=== PATIENT | female | born 1975 | race Caucasian/White ===

== ENCOUNTER 2018-06-11 16:26 | Observation (INO) | payer BC, OTHER ==
--- NOTE | 2018-06-11 17:19 | PDOC ---
Rapid Medical Evaluation Time Seen by Provider: 06/11/18 17:16 Medical Evaluation: Allergies Allergy/AdvReac Type Severity Reaction Status Date / Time No Known Allergies Allergy Verified 01/30/14 20:27 I have performed a brief in-person evaluation of this patient. The patient presents with a chief complaint of: clinic called. told her that her bloodwork from friday showed critically anemic. pt feels slightly lightheaded. H&H was 12/27. patient was on her menstrual cycle and has a history of fibroids Pertinent physical exam findings: none I have ordered the following: labs, type and screen The patient will proceed to the ED for further evaluation. Discharge Disposition - Diagnosis Anemia - Referrals - Patient Instructions - Post Discharge Activity
[2018-06-11 17:40] LABS: BASO % 1.8 % (0-2.0); EOS % 2.5 % (0-4.5); HEMATOCRIT 21.9 % (32.4-45.2); LYMPH % 24.7 % (8-40); MCHC 30.7 g/dl (32.0-36.0); MEAN CELL VOLUME 58.3 fl (80-96); MEAN PLT VOLUME 8.7 fl (7.5-11.1); MONO % 8.4 % (3.8-10.2); NEUT % 62.6 % (42.8-82.8); PLATELET COUNT 430 K/MM3 (134-434); RBC 3.75 M/mm3 (3.60-5.2)
[2018-06-11 17:46] LABS: MCH 17.9 pg (25.7-33.7)
[2018-06-11 17:47] LABS: HEMOGLOBIN 6.7 GM/dL (10.7-15.3)
[2018-06-11 18:13] LABS: URINE APPEARANCE CLEAR; URINE BILIRUBIN NEGATIVE (<2.0 mg/dL); URINE COLOR LTYELLOW; URINE GLUCOSE (UA) NEGATIVE (NEGATIVE); URINE KETONE NEGATIVE (NEGATIVE); URINE LEUK ESTERASE NEGATIVE (NEGATIVE); URINE NITRITE NEGATIVE (NEGATIVE); URINE PROTEIN NEGATIVE (NEGATIVE); URINE UROBILINOGEN NEGATIVE mg/dL (0.2-1.0)
[2018-06-11 18:15] LABS: HCG,QUALITATIVE URINE Negative
[2018-06-11 18:17] LABS: ALBUMIN 3.8 g/dl (3.4-5.0); ALK PHOS 96 U/L (45-117); ANION GAP 6 MMOL/L (8-16); BILIRUBIN,TOTAL 0.3 mg/dL (0.2-1); BLOOD UREA NITROGEN 8 mg/dL (7-18); CALCIUM 8.4 mg/dL (8.5-10.1); CHLORIDE 107 mmol/L (98-107); CO2 25 mmol/L (21-32); CREATININE 0.7 mg/dL (0.55-1.3); GLUCOSE,RANDOM 95 mg/dL (74-106); SGOT/AST 19 U/L (15-37); SGPT/ALT 19 U/L (13-61); SODIUM 139 mmol/L (136-145); TOT PROT 7.7 g/dl (6.4-8.2)
[2018-06-11 18:39] LABS: EPI CELLS RARE /HPF (FEW); URINE MUCUS FEW
--- NOTE | 2018-06-11 18:43 | PDOC ---
History of Present Illness - General Chief Complaint: Revisit, Lab Variance Stated Complaint: PCP SENT/ANEMIC Time Seen by Provider: 06/11/18 17:16 History Source: Patient Exam Limitations: No Limitations - History of Present Illness Initial Comments: 06/11/18 18:39 Patient is a 43-year-old female past medical history of fibroids, who presents to the emergency department today for a abnormally low H&H on blood work. Patient states she was seen by her primary care doctor to [facility] when they told her she had a critically low hemoglobin of 6. She was told to come to the emergency department. Patient states she just finished her menstrual cycle 2 days ago. She states that it was very heavy with clots and using many pads per day. She states that she is not had any treatment for her fibroids in the past. Patient also admits to dyspnea on exertion and lightheadedness. Denies fevers, chills, chest pain, palpitations, edema, abdominal pain, frequency, urgency and hematuria. Past History - Travel Traveled outside of the country in the last 30 days: No Close contact w/someone who was outside of country & ill: No - Past Medical History Allergies/Adverse Reactions: Allergies Allergy/AdvReac Type Severity Reaction Status Date / Time No Known Allergies Allergy Verified 06/11/18 17:18 COPD: No Seizures: Yes (CHILDHOOD-NO MEDICATION) - Surgical History Cholecystectomy: Yes - Reproductive History (#): 3 Para: 2 - Immunization History Immunization Up to Date: Yes - Suicide/Smoking/Psychosocial Hx Smoking Status: No Smoking History: Never smoked Number of Cigarettes Smoked Daily: 0 Hx Alcohol Use: No Drug/Substance Use Hx: No Substance Use Type: None Review of Systems - Review of Systems Able to Perform ROS?: Yes Comments:: 06/11/18 18:38 CONSTITUTIONAL: Absent: fever, chills, diaphoresis, generalized weakness, malaise, loss of appetite HEENT: Absent: rhinorrhea, nasal congestion, throat pain, throat swelling, difficulty swallowing, mouth swelling, ear pain, eye pain, visual Changes CARDIOVASCULAR: Present: lightheadedness Absent: chest pain, loss of consciousness, palpitations , irregular heart rate, peripheral edema RESPIRATORY: Present: shortness of breath on exertion Absent: cough, shortness of breath, orthopnea, wheezing, stridor, hemoptysis GASTROINTESTINAL: Absent: abdominal pain, abdominal distension, nausea, vomiting, diarrhea, constipation, melena, hematochezia GENITOURINARY: Absent: dysuria, frequency, urgency, hesitancy, hematuria, flank pain, genital pain MUSCULOSKELETAL: Absent: myalgia, arthralgia, joint swelling SKIN: Absent: rash, itching, pallor HEMATOLOGIC/IMMUNOLOGIC: Absent: easy bleeding, easy bruising, lymphadenopathy, frequent infections ENDOCRINE: Absent: unexplained weight gain, unexplained weight loss, heat intolerance, cold intolerance NEUROLOGIC: Absent: headache, focal weakness or paresthesias, dizziness, unsteady gait, seizure, mental status changes, bladder or bowel incontinence PSYCHIATRIC: Absent: anxiety, depression, suicidal or homicidal ideation, hallucinations. Is the patient limited Indonesian proficient: No *Physical Exam - Vital Signs Last Vital Signs Temp Pulse Resp BP Pulse Ox 98.8 F 84 18 134/63 100 06/11/18 17:19 06/11/18 17:19 06/11/18 17:19 06/11/18 17:19 06/11/18 17:19 - Physical Exam Comments: 06/11/18 18:39 GENERAL: Well developed, well nourished. Awake and alert. No acute distress. HEENT: Normocephalic, atraumatic. PERRLA, EOMI. (+) conjunctival pallor. Sclera are non -icteric. Moist mucous membranes. Oropharynx is clear. NECK: Supple. Full ROM. No JVD. Carotid pulses 2+ and symmetric, without bruits. No thyromegaly. No lymphadenopathy. CARDIOVASCULAR: Regular rate and rhythm. No murmurs, rubs, or gallops. Distal pulses are 2+ and symmetric. PULMONARY: No evidence of respiratory distress. Lungs clear to auscultation bilaterally. No wheezing, rales or rhonchi. ABDOMINAL: Soft. Non-tender. Non-distended. No rebound or guarding. No organomegaly. Normoactive bowel sounds. MUSCULOSKELETAL Normal range of motion at all joints. No bony deformities or tenderness. No CVA tenderness. EXTREMITIES: No cyanosis. No clubbing. No edema. No calf tenderness. SKIN: Warm and dry. Normal capillary refill. No rashes. No jaundice. NEUROLOGICAL: Alert, awake, appropriate. Cranial nerves 2-12 intact. No deficits to light touch and temperature in face, upper extremities and lower extremities. No motor deficits in the in face, upper extremities and lower extremities. Normoreflexic in the upper and lower extremities. Normal speech. Toes are down- going bilaterally. Gait is normal without ataxia. PSYCHIATRIC: Cooperative. Good eye contact. Appropriate mood and affect. Moderate Sedation - Procedure Monitoring Vital Signs: Procedure Monitoring Vital Signs Temperature 98.8 F 06/11/18 17:19 Pulse Rate 84 06/11/18 17:19 Respiratory Rate 18 06/11/18 17:19 Blood Pressure 134/63 06/11/18 17:19 O2 Sat by Pulse Oximetry (%) 100 06/11/18 17:19 ED Treatment Course - LABORATORY CBC & Chemistry Diagram: 06/11/18 17:31 06/11/18 17:31 - ADDITIONAL ORDERS Additional order review: Laboratory Results 06/11/18 06/11/18 06/11/18 17:46 17:31 17:31 Sodium 139 Potassium 4.0 Chloride 107 Carbon Dioxide 25 Anion Gap 6 L BUN 8 Creatinine 0.7 Creat Clearance w eGFR > 60 Random Glucose 95 Calcium 8.4 L Total Bilirubin 0.3 AST 19 ALT 19 Alkaline Phosphatase 96 Total Protein 7.7 Albumin 3.8 Urine Color Ltyellow Urine Appearance Clear Urine pH 6.0 Ur Specific [place] 1.011 Urine Protein Negative Urine Glucose (UA) Negative Urine Ketones Negative Urine Blood 1+ H Urine Nitrite Negative Urine Bilirubin Negative Urine Urobilinogen Negative Ur Leukocyte Esterase Negative Urine HCG, Qual Negative Crossmatch See Detail 06/11/18 17:31 RBC 3.75 MCV 58.3 L MCHC 30.7 L RDW 20.0 H MPV 8.7 Neutrophils % 62.6 Lymphocytes % 24.7 Monocytes % 8.4 Eosinophils % 2.5 Basophils % 1.8 - RADIOLOGY Radiology Studies Ordered: Category Date Time Status CHEST PA & LAT [RAD] Stat Radiology 06/11/18 18:08 Ordered TRANSVAGINAL ULTRASOUND US [US] Stat Ultrasound 06/11/18 18:07 Ordered Medical Decision Making - Medical Decision Making 06/11/18 18:41 Patient is a 43-year-old female with past medical history of fibroids, who presents to the emergency department patient is a 43-year-old female with past medical history of uterine fibroids, who presents to the emergency department today for a critically low H&H as an outpatient of 6. Labs obtained from [facility] show a hemoglobin of 6.7. Ordered 2 packed units at this time. Additional orders for chest x-ray, transvaginal ultrasound and EKG placed. Still pending lab work. Anticipate this patient will need observation for her transfusion and workup of anemia. Sign out given to MAILE Machado. *DC/Admit/Observation/Transfer Diagnosis at time of Disposition: Anemia - Referrals - Patient Instructions - Post Discharge Activity
--- NOTE | 2018-06-11 19:42 | PDOC ---
*Physical Exam - Vital Signs Last Vital Signs Temp Pulse Resp BP Pulse Ox 98.8 F 84 18 134/63 100 06/11/18 17:19 06/11/18 17:19 06/11/18 17:19 06/11/18 17:19 06/11/18 17:19 - Physical Exam General Appearance: Yes: Appropriately Dressed Respiratory/Chest: positive: Lungs Clear, Normal Breath Sounds. negative: Labored Respiration Musculoskeletal: positive: Normal Inspection Extremity: positive: Normal Capillary Refill, Normal Inspection Integumentary: positive: Dry, Warm, Pale ED Treatment Course - LABORATORY CBC & Chemistry Diagram: 06/12/18 16:00 06/11/18 17:31 - ADDITIONAL ORDERS Additional order review: Laboratory Results 06/11/18 06/11/18 06/11/18 17:46 17:31 17:31 Sodium 139 Potassium 4.0 Chloride 107 Carbon Dioxide 25 Anion Gap 6 L BUN 8 Creatinine 0.7 Creat Clearance w eGFR > 60 Random Glucose 95 Calcium 8.4 L Total Bilirubin 0.3 AST 19 ALT 19 Alkaline Phosphatase 96 Total Protein 7.7 Albumin 3.8 Urine Color Ltyellow Urine Appearance Clear Urine pH 6.0 Ur Specific [place] 1.011 Urine Protein Negative Urine Glucose (UA) Negative Urine Ketones Negative Urine Blood 1+ H Urine Nitrite Negative Urine Bilirubin Negative Urine Urobilinogen Negative Ur Leukocyte Esterase Negative Urine WBC (Auto) 1 Urine RBC (Auto) 1 Ur Epithelial Cells Rare Urine Mucus Few Urine HCG, Qual Negative Blood Type A POSITIVE Antibody Screen Negative Crossmatch See Detail 06/11/18 17:31 RBC 3.75 MCV 58.3 L MCHC 30.7 L RDW 20.0 H MPV 8.7 Neutrophils % 62.6 Lymphocytes % 24.7 Monocytes % 8.4 Eosinophils % 2.5 Basophils % 1.8 Medical Decision Making - Medical Decision Making 06/11/18 21:[address] Poe. will consult prn. recommends admission for anemia. patient is currently hemodynamically stable. patient signed out to Dr. Harden/ Dr. Vaughn *DC/Admit/Observation/Transfer Diagnosis at time of Disposition: Anemia Qualifiers: Anemia type: iron deficiency Iron deficiency anemia type: chronic blood loss Qualified Code(s): D50.0 - Iron deficiency anemia secondary to blood loss ( chronic) - Discharge Dispostion Disposition: HOME Condition at time of disposition: Stable Decision to Admit order: Yes - Referrals - Patient Instructions - Post Discharge Activity
[2018-06-11 21:08] LABS: ANISOCYTOSIS 3+; MACROCYTOSIS 1+
[2018-06-11 21:09] LABS: PLATELET ESTIMATE ADEQUATE
--- NOTE | 2018-06-11 22:21 | HP ---
CHIEF COMPLAINT: Sent from clinic for low Hgb on routine labs PCP: Clinic at [address] [facility], does not have consistent PCP HISTORY OF PRESENT ILLNESS: 43 yo female with PMH of uterine fibroids admitted after being sent from the clinic for a low hemogblobin. She states she recently completed her menstrual cycle in the last day or two though she is still having some minimal spotting. Her periods are normally heavy and last for around 5 days. She states her recent one was heavy as normal with notable clots and that she soaked through numerous pads each day. She denies having any complaints and states that she only had the blood work done because she was having an employment physical. However on further investigation, she does endorse a couple episodes of dyspnea on exertion, weakness, and feeling more tired over the last few days ER course was notable for: (1) Hgb 6.7 (2) Type and Screen (3) 2 units ordered but have not begun administration yet Recent Travel: None PAST MEDICAL HISTORY: Uterine Fibroibs PAST SURGICAL HISTORY: Right breast lumpectomy Social History: Smoking: Denies Alcohol: Very rarely Drugs: Denies Family History: Allergies No Known Allergies Allergy (Verified 06/11/18 17:18) HOME MEDICATIONS: REVIEW OF SYSTEMS CONSTITUTIONAL: generalized weakness Absent: fever, chills, diaphoresis, , malaise, loss of appetite, weight change HEENT: Absent: rhinorrhea, nasal congestion, throat pain, throat swelling, difficulty swallowing, mouth swelling, ear pain, eye pain, visual changes CARDIOVASCULAR: Absent: chest pain, syncope, palpitations, irregular heart rate, lightheadedness , peripheral edema RESPIRATORY: dyspnea with exertion, Absent: cough, shortness of breath, orthopnea, wheezing, stridor, hemoptysis GASTROINTESTINAL: Absent: abdominal pain, abdominal distension, nausea, vomiting, diarrhea, constipation, melena, hematochezia GENITOURINARY: flank pain (during menstruation, resolved) Absent: dysuria, frequency, urgency, hesitancy, hematuria, genital pain MUSCULOSKELETAL: Absent: myalgia, arthralgia, joint swelling, back pain, neck pain SKIN: Absent: rash, itching, pallor HEMATOLOGIC/IMMUNOLOGIC: Absent: easy bleeding, easy bruising, lymphadenopathy, frequent infections ENDOCRINE: Absent: unexplained weight gain, unexplained weight loss, heat intolerance, cold intolerance NEUROLOGIC: Absent: headache, focal weakness or paresthesias, dizziness, unsteady gait, seizure, mental status changes, bladder or bowel incontinence PSYCHIATRIC: Absent: anxiety, depression, suicidal or homicidal ideation, hallucinations. PHYSICAL EXAMINATION Vital Signs - 24 hr 18 06/11/18 17:19 22:05 Temperature 98.8 F 98.4 F Pulse Rate 84 Pulse Rate [ 84 Right Radial] Respiratory 18 18 Rate Blood Pressure 134/63 Blood Pressure 118/63 [Left Arm] O2 Sat by Pulse 100 100 Oximetry (%) GENERAL: A&O, pale but no acute distress HEAD: Normocephalic, atraumatic. EYES: PERRL, no scleral icterus EARS, NOSE, THROAT: oropharynx clear without exudates. Moist mucous membranes. NECK: supple without lymphadenopathy LUNGS: CTA b/l, no crackles or wheezes HEART: Regular rate and rhythm, normal S1 and S2 without murmur ABDOMEN: Soft, nontender to palpation, normoactive bowel sounds MUSCULOSKELETAL: No bony deformities or tenderness. EXTREMITIES: 2+ pulses, warm, well-perfused. No peripheral edema. NEUROLOGICAL: Cranial nerves II-XII grossly intact. Normal speech. Laboratory Results - last 24 hr 06/11/18 06/11/18 06/11/18 17:31 17:31 17:31 WBC 5.0 RBC 3.75 Hgb 6.7 L* Hct 21.9 L D MCV 58.3 L MCH 17.9 L D MCHC 30.7 L RDW 20.0 H Plt Count 430 D MPV 8.7 Absolute Neuts (auto) 3.2 Neutrophils % 62.6 Lymphocytes % 24.7 Monocytes % 8.4 Eosinophils % 2.5 Basophils % 1.8 Nucleated RBC % 0 Hypochromia 3+ Platelet Estimate Adequate Platelet Comment No clumping noted Anisocytosis 3+ Microcytosis 3+ Macrocytosis 1+ Sodium 139 Potassium 4.0 Chloride 107 Carbon Dioxide 25 Anion Gap 6 L BUN 8 Creatinine 0.7 Creat Clearance w eGFR > 60 Random Glucose 95 Calcium 8.4 L Total Bilirubin 0.3 AST 19 ALT 19 Alkaline Phosphatase 96 Total Protein 7.7 Albumin 3.8 Urine Color Urine Appearance Urine pH Ur Specific [place] Urine Protein Urine Glucose (UA) Urine Ketones Urine Blood Urine Nitrite Urine Bilirubin Urine Urobilinogen Ur Leukocyte Esterase Urine WBC (Auto) Urine RBC (Auto) Ur Epithelial Cells Urine Mucus Urine HCG, Qual Anti-A Titer Blood Type A POSITIVE Antibody Screen Negative Crossmatch See Detail 06/11/18 06/11/18 17:46 21:16 WBC RBC Hgb Hct MCV MCH MCHC RDW Plt Count MPV Absolute Neuts (auto) Neutrophils % Lymphocytes % Monocytes % Eosinophils % Basophils % Nucleated RBC % Hypochromia Platelet Estimate Platelet Comment Anisocytosis Microcytosis Macrocytosis Sodium Potassium Chloride Carbon Dioxide Anion Gap BUN Creatinine Creat Clearance w eGFR Random Glucose Calcium Total Bilirubin AST ALT Alkaline Phosphatase Total Protein Albumin Urine Color Ltyellow Urine Appearance Clear Urine pH 6.0 Ur Specific [place] 1.011 Urine Protein Negative Urine Glucose (UA) Negative Urine Ketones Negative Urine Blood 1+ H Urine Nitrite Negative Urine Bilirubin Negative Urine Urobilinogen Negative Ur Leukocyte Esterase Negative Urine WBC (Auto) 1 Urine RBC (Auto) 1 Ur Epithelial Cells Rare Urine Mucus Few Urine HCG, Qual Negative Anti-A Titer Cancelled Blood Type Cancelled Antibody Screen Cancelled Crossmatch ASSESSMENT/PLAN: 43 yo female with PMH of uterine fibroids admitted after being sent from the clinic for a low hemogblobin Anemia -Secondary to blood loss anemia with chronic heavy menstrual bleeding secondary to uterine fibroids -Case discussed with Gynecology by ED provider, can see as an outpatient follow up as pt not actively bleeding -Type and screen completed -One unit PRBCs ordered and pending, will repeat CBC and reassess after first unit completes, consider second unit PRBCs and then D/C to home -Stressed to patient the importance of outpatient f/u with gynecology for further management of uterine fibroids in order to prevent future transfusions DVT Prophylaxis -Early Ambulation FEN -Fluids: None -Electrolytes: No electrolyte abnormalities, BMP in AM -Nutrition: Regular diet Disposition Observation Visit type - Emergency Visit Emergency Visit: Yes ED Registration Date: 06/11/18 Care time: The patient presented to the Emergency Department on the above date and was hospitalized for further evaluation of their emergent condition. - New Patient This patient is new to me today: Yes Date on this admission: 06/12/18 - Critical Care Critical Care patient: No
--- NOTE | 2018-06-11 23:00 | PN ---
Teaching Attending Note Name of Resident: Zak Del Rosario ATTENDING PHYSICIAN STATEMENT I saw and evaluated the patient. I reviewed the resident's note and discussed the case with the resident. I agree with the resident's findings and plan as documented. SUBJECTIVE: Patient is a 43-year-old woman withl history of fibroids, who presents to the ER for a abnormally low H&H on blood work. Patient states she was seen by her primary care doctor to [facility] when they told her she had a critically low hemoglobin of 6. She was told to come to the emergency department. Patient states she just finished her menstrual cycle 2 days ago. She states that it was very heavy with clots and using many pads per day. She states that she is not had any treatment for her fibroids in the past. Fibroids were discovered about 18 months ago about the same time she started having heavy periods. Patient also admits to dyspnea on exertion and lightheadedness. Denies fevers, chills, chest pain, palpitations, edema, abdominal pain, frequency, urgency and hematuria. OBJECTIVE: Alert Vital Signs Period Temp Pulse Resp BP Sys/Gregg Pulse Ox Last 24 Hr 98.3 F-98.8 F 84-85 18-18 102-134/61-63 100-100 HEENT: No Jaundice, eye redness or discharge, Pale; PERRLA, EOMI. Normocephalic , atraumatic. External ears are normal and hearing is grossly intact. No nasal discharge. Neck: Supple, nontender. No palpable adenopathy or thyromegaly. No JVD Chest: Good effort. Clear to auscultation and percussion. Heart: Regular. No S3, rub or murmur Abdomen: Not distended, soft, nontender and no HSM. No rebound or guarding. Normoactive bowel sounds. Ext: Peripheral pulses intact. No leg edema. Skin: Warm and dry. No petechiae, rash or ecchymosis. Neuro: Alert. Oriented x3. CN 2-12 grossly intact. Sensation grossly intact in all four extremities and DTR are symmetric. ASSESSMENT AND PLAN: 1. Symptomatic anemia - Due to fibroids and heavy menstrual bleeding. Being transfused PRBC. Patient counseled in the presence of he daughter and her to make sure she follows up with [facility] [employer] to address the fibroids. Current options in the management of fibroids discussed. 2. DVT prophylaxis - Lovenox 40 mg SQ q 24 hours. 3. Advance directives - Full code
[2018-06-12 01:22] VITALS: BMI 29.0
[2018-06-12 02:26] LABS: HEMATOCRIT 24.4 % (32.4-45.2); HEMOGLOBIN 7.6 GM/dL (10.7-15.3); MCHC 31.3 g/dl (32.0-36.0); MEAN CELL VOLUME 61.8 fl (80-96); MEAN PLT VOLUME 8.7 fl (7.5-11.1); PLATELET COUNT 371 K/MM3 (134-434); RBC 3.95 M/mm3 (3.60-5.2); RDW 24.2 % (11.6-15.6); WHITE BLOOD COUNT 6.6 K/mm3 (4.0-10.0)
[2018-06-12 02:27] LABS: MCH 19.4 pg (25.7-33.7)
--- NOTE | 2018-06-12 16:28 | PN ---
Teaching Attending Note Name of Resident: Celia Alvarez ATTENDING PHYSICIAN STATEMENT I saw and evaluated the patient. I reviewed the resident's note and discussed the case with the resident. I agree with the resident's findings and plan as documented with exceptions below. SUBJECTIVE: Patient seen and examined, doing well, getting blood transfusion. OBJECTIVE: Vital Signs Period Temp Pulse Resp BP Sys/Gregg Pulse Ox Last 24 Hr 97.8 F-98.8 F 77-85 18-20 102-134/54-75 96-100 Intake & Output 06/09/18 06/10/18 06/11/18 06/12/18 23:59 23:59 23:59 23:59 Intake Total 250 Balance 250 Weight 151 lb 153 lb 5 oz General: sitting in bed in no acute distress Chest: CTAB, no rales or wheezing Abdomen:soft, obese, NT Extremities; no edema Home Medications Medication Instructions Recorded NK [No Known Home Medication] 06/12/18 Laboratory Results - last 24 hr 06/11/18 06/11/18 06/11/18 17:31 17:31 17:31 WBC 5.0 RBC 3.75 Hgb 6.7 L* Hct 21.9 L D MCV 58.3 L MCH 17.9 L D MCHC 30.7 L RDW 20.0 H Plt Count 430 D MPV 8.7 Absolute Neuts (auto) 3.2 Neutrophils % 62.6 Lymphocytes % 24.7 Monocytes % 8.4 Eosinophils % 2.5 Basophils % 1.8 Nucleated RBC % 0 Hypochromia 3+ Platelet Estimate Adequate Platelet Comment No clumping noted Anisocytosis 3+ Microcytosis 3+ Macrocytosis 1+ Sodium 139 Potassium 4.0 Chloride 107 Carbon Dioxide 25 Anion Gap 6 L BUN 8 Creatinine 0.7 Creat Clearance w eGFR > 60 Random Glucose 95 Calcium 8.4 L Total Bilirubin 0.3 AST 19 ALT 19 Alkaline Phosphatase 96 Total Protein 7.7 Albumin 3.8 Urine Color Urine Appearance Urine pH Ur Specific [place] Urine Protein Urine Glucose (UA) Urine Ketones Urine Blood Urine Nitrite Urine Bilirubin Urine Urobilinogen Ur Leukocyte Esterase Urine WBC (Auto) Urine RBC (Auto) Ur Epithelial Cells Urine Mucus Urine HCG, Qual Anti-A Titer Blood Type A POSITIVE Antibody Screen Negative Crossmatch See Detail 06/11/18 06/11/18 06/12/18 17:46 21:16 01:50 WBC 6.6 RBC 3.95 Hgb 7.6 L Hct 24.4 L MCV 61.8 L D MCH 19.4 L MCHC 31.3 L RDW 24.2 H Plt Count 371 MPV 8.7 Absolute Neuts (auto) Neutrophils % Lymphocytes % Monocytes % Eosinophils % Basophils % Nucleated RBC % Hypochromia Platelet Estimate Platelet Comment Anisocytosis Microcytosis Macrocytosis Sodium Potassium Chloride Carbon Dioxide Anion Gap BUN Creatinine Creat Clearance w eGFR Random Glucose Calcium Total Bilirubin AST ALT Alkaline Phosphatase Total Protein Albumin Urine Color Ltyellow Urine Appearance Clear Urine pH 6.0 Ur Specific [place] 1.011 Urine Protein Negative Urine Glucose (UA) Negative Urine Ketones Negative Urine Blood 1+ H Urine Nitrite Negative Urine Bilirubin Negative Urine Urobilinogen Negative Ur Leukocyte Esterase Negative Urine WBC (Auto) 1 Urine RBC (Auto) 1 Ur Epithelial Cells Rare Urine Mucus Few Urine HCG, Qual Negative Anti-A Titer Cancelled Blood Type Cancelled Antibody Screen Cancelled Crossmatch ASSESSMENT AND PLAN: 43 yof with uterine fibroids here with symptomatic anemia -Symptomatic anemia, likely from menorrhagia/fibroids Plan: Transfuse total 2 units pRbc. repeat h/h d/c home with outpatient chef broiler or fry follow up if hb stable Plan discussed with patient in detail, all questions answered.
[2018-06-12 16:31] LABS: HEMATOCRIT 27.1 % (32.4-45.2); HEMOGLOBIN 8.8 GM/dL (10.7-15.3); MCH 20.8 pg (25.7-33.7); MCHC 32.7 g/dl (32.0-36.0); MEAN CELL VOLUME 63.7 fl (80-96); MEAN PLT VOLUME 8.8 fl (7.5-11.1); PLATELET COUNT 361 K/MM3 (134-434); RBC 4.25 M/mm3 (3.60-5.2); RDW 26.5 % (11.6-15.6); WHITE BLOOD COUNT 5.7 K/mm3 (4.0-10.0)
--- NOTE | 2018-06-12 16:43 | DS ---
Physical Exam: SUBJECTIVE: Patient seen and examined OBJECTIVE: Vital Signs Period Temp Pulse Resp BP Sys/Gregg Pulse Ox Last 24 Hr 97.8 F-98.8 F 77-85 18-20 102-134/54-75 96-100 PHYSICAL EXAM GENERAL: The patient is awake, alert, and fully oriented, in no acute distress. HEAD: Normal with no signs of trauma. EYES: PERRL, extraocular movements intact, sclera anicteric, conjunctiva clear. ENT: Ears normal, nares patent, oropharynx clear without exudates, moist mucous membranes. NECK: Trachea midline, full range of motion, supple. LUNGS: Breath sounds equal, clear to auscultation bilaterally, no wheezes, no crackles, no accessory muscle use. HEART: Regular rate and rhythm, S1, S2 without murmur, rub or gallop. ABDOMEN: Soft, nontender, nondistended, normoactive bowel sounds, no guarding, no rebound, no hepatosplenomegaly, no masses. EXTREMITIES: 2+ pulses, warm, well-perfused, no edema. NEUROLOGICAL: Cranial nerves II through XII grossly intact. Normal speech, gait not observed. PSYCH: Normal mood, normal affect. SKIN: Warm, dry, normal turgor, no rashes or lesions noted. LABS Laboratory Results - last 24 hr 06/11/1818 06/11/18 17:31 17:31 17:31 WBC 5.0 RBC 3.75 Hgb 6.7 L* Hct 21.9 L D MCV 58.3 L MCH 17.9 L D MCHC 30.7 L RDW 20.0 H Plt Count 430 D MPV 8.7 Absolute Neuts (auto) 3.2 Neutrophils % 62.6 Lymphocytes % 24.7 Monocytes % 8.4 Eosinophils % 2.5 Basophils % 1.8 Nucleated RBC % 0 Hypochromia 3+ Platelet Estimate Adequate Platelet Comment No clumping noted Anisocytosis 3+ Microcytosis 3+ Macrocytosis 1+ Sodium 139 Potassium 4.0 Chloride 107 Carbon Dioxide 25 Anion Gap 6 L BUN 8 Creatinine 0.7 Creat Clearance w eGFR > 60 Random Glucose 95 Calcium 8.4 L Total Bilirubin 0.3 AST 19 ALT 19 Alkaline Phosphatase 96 Total Protein 7.7 Albumin 3.8 Urine Color Urine Appearance Urine pH Ur Specific [place] Urine Protein Urine Glucose (UA) Urine Ketones Urine Blood Urine Nitrite Urine Bilirubin Urine Urobilinogen Ur Leukocyte Esterase Urine WBC (Auto) Urine RBC (Auto) Ur Epithelial Cells Urine Mucus Urine HCG, Qual Anti-A Titer Blood Type A POSITIVE Antibody Screen Negative Crossmatch See Detail 06/11/18 06/11/18 06/12/18 17:46 21:16 01:50 WBC 6.6 RBC 3.95 Hgb 7.6 L Hct 24.4 L MCV 61.8 L D MCH 19.4 L MCHC 31.3 L RDW 24.2 H Plt Count 371 MPV 8.7 Absolute Neuts (auto) Neutrophils % Lymphocytes % Monocytes % Eosinophils % Basophils % Nucleated RBC % Hypochromia Platelet Estimate Platelet Comment Anisocytosis Microcytosis Macrocytosis Sodium Potassium Chloride Carbon Dioxide Anion Gap BUN Creatinine Creat Clearance w eGFR Random Glucose Calcium Total Bilirubin AST ALT Alkaline Phosphatase Total Protein Albumin Urine Color Ltyellow Urine Appearance Clear Urine pH 6.0 Ur Specific [place] 1.011 Urine Protein Negative Urine Glucose (UA) Negative Urine Ketones Negative Urine Blood 1+ H Urine Nitrite Negative Urine Bilirubin Negative Urine Urobilinogen Negative Ur Leukocyte Esterase Negative Urine WBC (Auto) 1 Urine RBC (Auto) 1 Ur Epithelial Cells Rare Urine Mucus Few Urine HCG, Qual Negative Anti-A Titer Cancelled Blood Type Cancelled Antibody Screen Cancelled Crossmatch 06/12/18 16:00 WBC 5.7 RBC 4.25 Hgb 8.8 L Hct 27.1 L MCV 63.7 L MCH 20.8 L MCHC 32.7 RDW 26.5 H Plt Count 361 MPV 8.8 Absolute Neuts (auto) Neutrophils % Lymphocytes % Monocytes % Eosinophils % Basophils % Nucleated RBC % Hypochromia Platelet Estimate Platelet Comment Anisocytosis Microcytosis Macrocytosis Sodium Potassium Chloride Carbon Dioxide Anion Gap BUN Creatinine Creat Clearance w eGFR Random Glucose Calcium Total Bilirubin AST ALT Alkaline Phosphatase Total Protein Albumin Urine Color Urine Appearance Urine pH Ur Specific [place] Urine Protein Urine Glucose (UA) Urine Ketones Urine Blood Urine Nitrite Urine Bilirubin Urine Urobilinogen Ur Leukocyte Esterase Urine WBC (Auto) Urine RBC (Auto) Ur Epithelial Cells Urine Mucus Urine HCG, Qual Anti-A Titer Blood Type Antibody Screen Crossmatch HOSPITAL COURSE: Date of Admission:06/11/18 43 y/o female no PMH came in after being sent in from her PCP for a low hgb- on admission it was 6.7. pateint has a history of fibroids and very heavy menstrual periods. reji recieved 2 untis of blood and repeat cbc was 8.8 patient was dishcarged to follow up with her pcp within one week for repeat cbc and also has urogynecology physician referrals. Date of Discharge: 06/12/18 Minutes to complete discharge: 39 Discharge Summary Reason For Visit: ANEMIA Current Active Problems Anemia (Acute) Condition: Stable - Instructions Diet, Activity, Other Instructions: You came to the hospital with a low hemoglobin level, which came up appropriately after receiving 2 units of blood. Please resume all of your home medications: -Please follow up with your primary care physician and have your blood levels checked within one week. We also advise you to get iron studies done -We are referring you to a inductor tester, Dr. Nguyen, please make an appointment within a week. *if you continue to have bleeding, or if you have any chest pain, dizziness, shortness of breath, headaches, palpitations, or any new concerns, please call 911 or return to the emergency room immediately. Referrals: Lor Nguyen MD [Staff Physician] - 1 Week Disposition: HOME - Home Medications Comprehensive Discharge Medication List: Ambulatory Orders NK [No Known Home Medication] 06/12/18 Problem List - Problems (1) Anemia Code(s): D64.9 - ANEMIA, UNSPECIFIED Qualifiers: Anemia type: iron deficiency Iron deficiency anemia type: chronic blood loss Qualified Code(s): D50.0 - Iron deficiency anemia secondary to blood loss (chronic) This patient is new to me today: Yes Date on this admission: 06/12/18 Emergency Visit: Yes ED Registration Date: 06/11/18 Care time: The patient presented to the Emergency Department on the above date and was hospitalized for further evaluation of their emergent condition. Critical Care patient: No - Discharge Referral Referred to [facility] Med [facility] No
[2018-06-12 17:29] VITALS: BP 126/74; PULSE 80; TEMP 98.4
== END 2018-06-12 18:14 | disposition home or self-care (01) ==
LOC: JER 16:26 → JERBED 21:36 → J7W 06-12 00:52
PROVIDERS: ADMIT Internal Medicine; ATTEND Hospitalist
PROC: 30233N1 Transfusion of Nonautologous Red Blood Cells into Peripheral Vein, Percutaneous Approach (ICD-10-PCS; principal; 2018-06-11)
DX: D50.0 Iron deficiency anemia secondary to blood loss (chronic) (principal); D25.9 Leiomyoma of uterus, unspecified; Z86.69 Personal history of other diseases of the nervous system and sense organs
CPT/HCPCS: 36415; 36430; 71046-TC-FY; 76830-TC; 80053; 81003; 81015; 84703; 85025; 85027; 86850; 86900; 86901; 86922; 99285-25; G0378; P9038; P9058

== ENCOUNTER 2019-09-06 15:29 | Emergency (ER) | payer OTHER ==
[2019-09-06 15:48] VITALS: BP 124/64; PULSE 82; TEMP 98.7; BMI 29.5
--- NOTE | 2019-09-06 15:48 | PDOC ---
Rapid Medical Evaluation Chief Complaint: Lightheaded Time Seen by Provider: 09/06/19 15:45 Medical Evaluation: Allergies Allergy/AdvReac Type Severity Reaction Status Date / Time No Known Allergies Allergy Verified 09/06/19 15:44 09/06/19 15:45 This patient had rapid evaluation in triage cc:lightheadedness HPI: Patient reports suffering from anemia and feels as if her blood count is low. Complaining of palpitations 1-2 hours ago. PE: appears well, no pallor unlabored breathing heart [id number] order: labs ordered This patient will proceed to main emergency room for further evaluation. Discharge Disposition - Diagnosis Anemia - Referrals - Patient Instructions - Post Discharge Activity
[2019-09-06 16:33] LABS: INR 0.96 (0.83-1.09); PROTHROMBIN TIME (PATIENT) 11.3 SEC (9.7-13.0)
[2019-09-06 16:35] LABS: ACTIVATED PTT 29.7 SECONDS (25.2-36.5)
[2019-09-06 16:36] LABS: BASO % 0.9 % (0-2.0); EOS % 1.6 % (0-4.5); HEMATOCRIT 29.7 % (32.4-45.2); HEMOGLOBIN 9.1 GM/dL (10.7-15.3); LYMPH % 19.1 % (8-40); MCH 24.3 pg (25.7-33.7); MCHC 30.6 g/dl (32.0-36.0); MEAN CELL VOLUME 79.2 fl (80-96); MEAN PLT VOLUME 9.2 fl (7.5-11.1); MONO % 6.6 % (3.8-10.2); NEUT % 71.8 % (42.8-82.8); PLATELET COUNT 263 K/MM3 (134-434); RBC 3.75 M/mm3 (3.60-5.2); RDW 23.6 % (11.6-15.6); WHITE BLOOD COUNT 6.7 K/mm3 (4.0-10.0)
[2019-09-06 16:42] LABS: ALBUMIN 3.4 g/dl (3.4-5.0); BILIRUBIN,TOTAL 0.1 mg/dL (0.2-1); BLOOD UREA NITROGEN 9.2 mg/dL (7-18); CREATININE 0.8 mg/dL (0.55-1.3); POTASSIUM 4.1 mmol/L (3.5-5.1)
[2019-09-06 16:52] LABS: ANISOCYTOSIS 3+; PLATELET ESTIMATE ADEQUATE
[2019-09-06] MEDS ORDERED: IBUPROFEN 400 MG TABLET (FP) PO ONE (18:09)
--- NOTE | 2019-09-06 18:15 | PDOC ---
History of Present Illness - General Chief Complaint: Lightheaded Stated Complaint: WEAK/DIZZY/NAUSE Time Seen by Provider: 09/06/19 15:45 History Source: Patient - History of Present Illness Timing/Duration: other Past History - Past Medical History Allergies/Adverse Reactions: Allergies Allergy/AdvReac Type Severity Reaction Status Date / Time No Known Allergies Allergy Verified 09/06/19 15:44 Home Medications: Ambulatory Orders NK [No Known Home Medication] 06/12/18 Anemia: No Asthma: No Cancer: No Cardiac Disorders: No CVA: No COPD: No CHF: No Dementia: No Diabetes: No GI Disorders: No Disorders: No HTN: No Hypercholesterolemia: No Liver Disease: No Seizures: Yes (CHILDHOOD-NO MEDICATION) Thyroid Disease: No - Surgical History Abdominal Surgery: No Appendectomy: No Cardiac Surgery: No Cholecystectomy: Yes Lung Surgery: No Neurologic Surgery: No Orthopedic Surgery: No - Reproductive History (#): 3 Para: 2 - Immunization History Immunization Up to Date: Yes - Psycho Social/Smoking Cessation Hx Smoking Status: No Smoking History: Never smoked Have you smoked in the past 12 months: No Number of Cigarettes Smoked Daily: 0 Information on smoking cessation initiated: No Hx Alcohol Use: No Drug/Substance Use Hx: No Substance Use Type: None Hx Substance Use Treatment: No Review of Systems - Review of Systems Constitutional: No: Chills, Fever Respiratory: No: Shortness of Breath Cardiac (ROS): Yes: Lightheadedness, Palpitations. No: Chest Pain, Syncope ABD/GI: No: Nausea, Vomiting, Abdominal cramping : No: Dysuria Neurological: Yes: Dizziness. No: Headache, Numbness, Weakness *Physical Exam - Vital Signs Last Vital Signs Temp Pulse Resp BP Pulse Ox 98.7 F 82 16 124/64 100 09/06/19 15:44 09/06/19 15:44 09/06/19 15:44 09/06/19 15:44 09/06/19 15:44 - Physical Exam General Appearance: Yes: Appropriately Dressed. No: Apparent Distress HEENT: positive: Normal Voice Neck: positive: Supple Respiratory/Chest: positive: Lungs Clear, Normal Breath Sounds. negative: Respiratory Distress Cardiovascular: positive: Regular Rate, S1, S2 Gastrointestinal/Abdominal: positive: Soft. negative: Tender Integumentary: positive: Dry, Warm Neurologic: positive: Fully Oriented, Alert, Normal Mood/Affect ED Treatment Course - LABORATORY CBC & Chemistry Diagram: 09/06/19 15:58 09/06/19 15:58 - ADDITIONAL ORDERS Additional order review: Laboratory Results 09/06/19 09/06/19 15:58 15:58 PT with INR 11.30 INR 0.96 PTT (Actin FS) 29.7 Sodium 142 Potassium 4.1 Chloride 109 H Carbon Dioxide 29 Anion Gap 4 L BUN 9.2 Creatinine 0.8 Est GFR (CKD-EPI)AfAm 102.47 Est GFR (CKD-EPI)NonAf 88.41 Random Glucose 99 Calcium 9.0 Total Bilirubin 0.1 L AST 17 ALT 22 Alkaline Phosphatase 86 Total Protein 7.0 Albumin 3.4 09/06/19 15:58 RBC 3.75 MCV 79.2 L MCHC 30.6 L RDW 23.6 H MPV 9.2 Neutrophils % 71.8 Lymphocytes % 19.1 D Monocytes % 6.6 Eosinophils % 1.6 Basophils % 0.9 Medical Decision Making - Medical Decision Making 09/06/19 18:08 44 yo F, long history of fibroids and anemia, s/p transfusion x 1 in 2018, continues to menstruate but irreg per pt, here with lightheadedness on and off that started 2 weeks ago while on vacation in [place]. Also states she had palpitations then that has since resolved. Was seen in the ER in [facility] and told that her hemoglobin was low but not low enough to transfuse and pt was started on prenatals and told to f/u with her [employer] TECHNICIAN which pt has not yet done. Denies any shortness of breath, chest pain or syncope. No headache, vertigo, visual changes, slurred speech or focal weakness see exam Dizziness Recurrent Hx of fibroids, anemia, on prenatals x 2 weeks Stable w/ unremarkable exam today Hgb >9 on labs today w/ normal EKG, declines to wait for upreg and TSH -Will dc to f/u with [employer]MENT [employer] TECHNICIAN this week -Reasons to return d/w pt 09/06/19 18:30 Discharge - Discharge Information Problems reviewed: Yes Clinical Impression/Diagnosis: Lightheadedness Anemia Qualifiers: Anemia type: unspecified type Qualified Code(s): D64.9 - Anemia, unspecified Condition: Good Disposition: HOME - Follow up/Referral Referrals: Mayra Black MD [Primary Care Provider] - - Patient Discharge Instructions Patient Printed Discharge Instructions: DI for Dizziness-Nonvertigo Additional Instructions: Continue to take your vitamins and follow up with your CHEM[employer]ATMENT [employer] TECHNICIAN and PMD this week Return to ER if symptoms worsen - Post Discharge Activity
--- NOTE | 2019-09-07 10:34 | EKG ---
Test Reason : Blood Pressure : / mmHG Vent. Rate : 067 BPM Atrial Rate : 067 BPM P-R Int : 126 ms QRS Dur : 090 ms QT Int : 384 ms P-R-T Axes : 030 002 020 degrees QTc Int : 405 ms NORMAL SINUS RHYTHM NORMAL ECG WHEN COMPARED WITH ECG OF 27-MAR-2013 16:56, VENT. RATE HAS DECREASED BY 51 BPM Confirmed by Deepak Diaz MD ([id number]) on 09/07/2019 10:34:11 AM Referred By: Confirmed By:Deepak Diaz MD
== END 2019-09-06 18:17 | disposition home or self-care (01) ==
LOC: JER 15:29
DX: D64.9 Anemia, unspecified (principal); Z86.2 Personal history of diseases of the blood and blood-forming organs and certain disorders involving the immune mechanism
CPT/HCPCS: 36415; 80053; 84443; 84703; 85025; 85610; 85730; 93005; 93010; 99284-25

== ENCOUNTER 2021-04-20 17:34 | Emergency (ER) | payer OTHER ==
[2021-04-20 17:55] VITALS: BP 121/78; PULSE 79; TEMP 98; BMI 27.8
[2021-04-20 20:25] LABS: BASO % 0.7 % (0-2.0); EOS % 2.8 % (0-4.5); HEMATOCRIT 27.2 % (32.4-45.2); HEMOGLOBIN 8.5 GM/dL (10.7-15.3); MCHC 31.1 g/dl (32.0-36.0); MEAN CELL VOLUME 59.9 fl (80-96); MEAN PLT VOLUME 8.6 fl (7.5-11.1); MONO % 7.7 % (3.8-10.2); NEUT % 59.8 % (42.8-82.8); PLATELET COUNT 292 10^3/uL (134-434); RBC 4.54 M/mm3 (3.60-5.2); RDW 20.8 % (11.6-15.6); WHITE BLOOD COUNT 5.5 K/mm3 (4.0-10.0)
[2021-04-20 20:28] LABS: MCH 18.6 pg (25.7-33.7)
[2021-04-20 20:32] LABS: INR 1.06 (0.83-1.09); PROTHROMBIN TIME (PATIENT) 11.9 SEC (9.7-13.0)
[2021-04-20 20:48] LABS: CALCIUM 8.8 mg/dL (8.5-10.1)
[2021-04-20 20:49] LABS: ALBUMIN 3.7 g/dl (3.4-5.0); BLOOD UREA NITROGEN 10.2 mg/dL (7-18)
[2021-04-20 20:52] LABS: CREATININE 0.6 mg/dL (0.55-1.3)
[2021-04-20 20:53] LABS: BILIRUBIN,TOTAL 0.3 mg/dL (0.2-1); TOT PROT 7.9 g/dl (6.4-8.2)
[2021-04-21 00:17] LABS: ANISOCYTOSIS 2+; MACROCYTOSIS 0; OVALOCYTE 1+; PLATELET ESTIMATE NORMAL; TEAR DROP CELLS 1+
== END 2021-04-20 21:04 | disposition home or self-care (01) ==
LOC: JER 17:34
DX: D64.9 Anemia, unspecified (principal)
CPT/HCPCS: 36415; 80053; 84703; 85025; 85610; 86850; 86900; 86901; 99283-25

== ENCOUNTER 2021-07-30 14:39 | Emergency (ER) | payer OTHER ==
[2021-07-30 14:51] VITALS: BP 128/84; PULSE 82; TEMP 97.8; BMI 27.6
[2021-07-30] MEDS ORDERED: LIDOCAINE 5% TOPICAL PATCH TP ONE (15:58)
[2021-07-30] MEDS ORDERED: KETOROLAC TROMETHAMINE 30 MG/1 ML VIAL IM ONE (15:58)
[2021-07-30] MEDS ORDERED: LIDOCAINE 5% TOPICAL PATCH ONE (17:14)
[2021-07-30] MEDS ORDERED: KETOROLAC TROMETHAMINE 30 MG/1 ML VIAL ONE (17:14)
[2021-07-30] MEDS ORDERED: LIDOCAINE PATCH REMOVAL MC SCH (22:00)
== END 2021-07-30 17:30 | disposition home or self-care (01) ==
LOC: JERFT 14:39
PROC: 3E0233Z Introduction of Anti-inflammatory into Muscle, Percutaneous Approach (ICD-10-PCS; principal; 2021-07-30)
DX: M54.41 Lumbago with sciatica, right side (principal)
CPT/HCPCS: 73630-TC-RT-FY; 99284-25